=== PATIENT | male | born 1950 | race Caucasian/White ===

== ENCOUNTER 2019-11-01 11:13 | Emergency (ER) | payer BC, MEDICARE ==
--- OUTSIDE RECORDS SUMMARY | 2019-11-01 11:27 | XMS REPORT | Summary of Care ---
:1950 Author Organization [facility] Address [address] [address] Care Team Providers Name Role Phone Robin Brennan Primary Care Provider Reason for Visit Reason Comments Breathing Problem Pt. c/o increased Shortness of Breath. Reports Head Cold prior to Lynda. Encounter Details Date Type Department Care Team Description 10/30/2019 Office Visit [place] Sruthi, Acute on chronic systolic congestive heart failure (HCC) (Primary Dx); Cardiology MD Prakash Persistent atrial fibrillation; [address] Nonischemic cardiomyopathy (HCC); [place] [address] [place] [address] Aortic valve insufficiency, etiology of cardiac valve disease unspecified; [phone] Coronary artery disease involving yurok coronary artery of yurok heart without angina pectoris Allergies Active Allergy Reactions Severity Noted Date Comments Environmental Respiratory Reaction 07/30/2018 Lactose Intolerance GI Reaction Medium 12/26/2010 documented as of this encounter (statuses as of 10/30/2019) Medications Medication Sig Dispensed Refills Start Date End Date Status Cyanocobalamin (B-12 PO) Take 2,000 mg by 0 Active mouth. Misc Natural Products Take by mouth. 0 Active (GLUCOSAMINE CHONDROITIN ADV PO) ofloxacin (OCUFLOX) 0.3 Place 2 Drops in 1 Bottle 1 02/11/2019 Active % Ophthalmic left eye FOUR SolutionIndications: TIMES DAILY. Combined forms of Start one day age-related cataract of prior to surgery left eye and use the morning of surgery as directed. prednisoLONE acetate Place 1 Drop in 1 Bottle 1 02/11/2019 Active (PRED FORTE) 1 % left eye FOUR Ophthalmic TIMES DAILY. SuspensionIndications: Start using Combined forms of after surgery. age-related cataract of Use until the left eye bottle is gone. carvedilol (COREG) 12.5 Take 1 Tab by 180 Tab 3 05/26/2019 Active MG Oral Tab mouth TWICE DAILY. atorvastatin (LIPITOR) Take 1 Tab by 90 Tab 3 05/28/2019 Active 20 MG Oral Tab mouth DAILY. apixaban (ELIQUIS) 5 MG Take 1 Tab by 180 Tab 3 07/31/2019 Active Oral TabIndications: mouth TWICE Persistent atrial DAILY. fibrillation spironolactone Take 1 Tab by 90 Tab 3 08/04/2019 Active (ALDACTONE) 25 MG Oral mouth DAILY. TabIndications: Chronic systolic congestive heart failure (HCC) torsemide (DEMADEX) 20 Take 2 Tabs by 60 Tab 5 08/15/2019 Active MG Oral Tab mouth DAILY. documented as of this encounter (statuses as of 10/30/2019) Active Problems Problem Noted Date Alcoholism in remission 06/06/2018 Persistent atrial fibrillation 04/25/2018 Alcoholic cardiomyopathy 04/25/2018 Obstructive sleep apnea 05/22/2017 Overview: Severe by home sleep study April 2017 Primary osteoarthritis of both knees 04/02/2017 Essential hypertension, benign 09/27/2009 Umbilical hernia 09/11/2009 Incisional hernia 09/11/2009 Overview: Left upper quadrant History of alcohol abuse 09/30/2008 Overview: History of heavy use [id number] Reduced to 1-2 beers nightly and 5-6 weekends 2007. BMI 40.0-44.9, adult 09/18/2007 Overview: S/p gastroplasty bariatric surgery [facility] 1984. BMI 48 08/23, BMI 48 09/22, BMI 46.7 12/23 Major depression in remission 09/18/2007 Overview: Chronic. Osteoarthritis of Knee 09/18/2007 Primary osteoarthritis of shoulder 09/18/2007 Impotence of organic origin 09/18/2007 documented as of this encounter (statuses as of 10/30/2019) Resolved Problems Problem Noted Date Resolved Date Other chest pain 05/02/2018 05/03/2018 Primary osteoarthritis of right knee 07/10/2017 06/06/2018 Chronic pain of both knees 04/02/2017 06/06/2018 Shoulder pain, bilateral 01/20/2015 03/09/2017 Adhesive capsulitis of shoulder 09/30/2008 03/09/2017 Overview: LEFT documented as of this encounter (statuses as of 10/30/2019) Immunizations Name Administration Dates Next Due Influenza Vaccine Whole 07/12/2007, 08/07/2006 documented as of this encounter Social History Tobacco Use Types Packs/Day Years Used Date Former Smoker Cigarettes 1 2 Quit: 10/15/1971 Smokeless Tobacco: Never Used Alcohol Use Drinks/Week oz/Week Comments No Sex Assigned at Date Recorded Not on file Job Start Date Occupation Industry Not on file Not on file Not on file Travel History Travel Start Travel End No recent travel history available. documented as of this encounter Last Filed Vital Signs Vital Sign Reading Time Taken Comments Blood Pressure 134/76 10/30/2019 3:21 PM EST Pulse 125 10/30/2019 3:21 PM EST Temperature 37.9 10/30/2019 3:21 PM C (100.2 EST F) Respiratory Rate - - Oxygen Saturation 95% 10/30/2019 3:21 PM EST Inhaled Oxygen Concentration - - Weight 147.9 kg (326 lb) 10/30/2019 3:21 PM EST Height 180.3 cm (5' 11") 10/30/2019 3:21 PM EST Body Mass Index 45.47 10/30/2019 3:21 PM EST documented in this encounter Patient Instructions Patient InstructionsPrakash Negro MD - 10/30/2019 3:20 PM EST Bump up your echo appointment to have it done sooner than planned. INCREASE the torsemide to 2 tablets (40mg) once daily. INCREASE carvedilol to 12.5mg three times daily instead of just twice daily. Continue your other medications as-is. Get your bloodwork and chest xray checked today. Follow up with Alix Gonzales early next week. documented in this encounter Progress Notes Prakash Negro MD - 10/30/2019 3:20 PM EST [facility] Note Patient: Onesimo Cornejo Date of : 1950 Date of Service: 10/30/2019 REFERRING PRACTITIONER: Self-Referred PRIMARY CARE PROVIDER: Robin Brennan Chief Complaint: Chief Complaint Patient presents with Breathing Problem Pt. c/o increased Shortness of Breath. Reports Head Cold prior to . History of Present Illness: We had the pleasure of seeing Onesimo Cornejo today at the [facility] Office. He is a 69-y.o. male with morbid obesity, KATT on CPAP, HTN, hyperlipidemia, prior alcohol abuse, longstanding persistent atrial fibrillation, and systolic CHF due to NICM with later normalization of LVEF as of echo 09/2018. Cath in April 2018 showed nonobstructive CAD. Mr. Cornejo returns to cardiology clinic today on a semi-urgent basis for evaluation of SOB. He reports that over and New Year's he had 2-3 alcoholic drinks and also got a URI/sinusitis. He says that the sinusitis symptoms seemed to improve a week or two ago. No chest pains/pressure. Saysthat his breathing has been gradually worsening since the holidays. Has had ~4 pound weight gain byour scales. Says that he's been trying to restrict his sodium intake but did eat a lot more cookiesover the holidays. No significant cough but has been having chills. No significant palpitations. No clear orthopnea but sleeps with a wedge pillow chronically. Has noted some increased LE edema. Also notes that his toes have been hurting and blue. 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 History of alcohol abuse Umbilical hernia Incisional hernia Essential hypertension, benign Primary osteoarthritis of both knees Obstructive sleep apnea Persistent atrial fibrillation Alcoholic cardiomyopathy (HCC) Alcoholism in remission ([facility]) Past Medical History: Diagnosis Date Acute systolic congestive heart failure (HCC) 04/25/2018 Adhesive capsulitis of shoulder 09/30/2008 LEFT HISTORY OF ALCOHOL ABUSE 09/30/2008 Hypertension Obesity Persistent atrial fibrillation (HCC) 04/25/2018 Past Surgical History: Procedure Laterality Date CARDIOVERSION N/A 07/30/2018 Procedure: CARDIOVERSION; Surgeon: Prakash Negro MD; Location: [facility] ; Laterality: N/A;CARDIOVERSION CATHETERIZATION HEART RIGHT AND LEFT N/A 05/02/2018 Procedure: CATHETERIZATION HEART RIGHT AND LEFT; Surgeon: Ricardo Trevizo MD; Location: [facility] CCL COLONOSCOPY 1.9.2007 HIGH GASTRIC BYPASS 1984 AL REMV CATARACT EXTRACAP,INSERT LENS Left 03/17/2019 Procedure: PHACOEMULSIFICATION WITH INTRA OCULAR LENS; Surgeon: Loly Haro MD; Location: [facility] MAIN OR Allergies Allergen Reactions Lactose Intolerance GI Reaction Environmental Respiratory Reaction Current Outpatient Medications Medication Sig apixaban (ELIQUIS) 5 MG Oral Tab Take 1 Tab by mouth TWICE DAILY. atorvastatin (LIPITOR) 20 MG Oral Tab Take 1 Tab by mouth DAILY. carvedilol (COREG) 12.5 MG Oral Tab Take 1 Tab by mouth TWICE DAILY. Cyanocobalamin (B-12 PO) Take 2,000 mg by mouth. Misc Natural Products (GLUCOSAMINE CHONDROITIN ADV PO) Take by mouth. ofloxacin (OCUFLOX) 0.3 % Ophthalmic Solution Place 2 Drops in left eye FOUR TIMES DAILY. Start one day prior to surgery and use the morning of surgery as directed. prednisoLONE acetate (PRED FORTE) 1 % Ophthalmic Suspension Place 1 Drop in left eye FOUR TIMES DAILY. Start using after surgery. Use until the bottle is gone. spironolactone (ALDACTONE) 25 MG Oral Tab Take 1 Tab by mouth DAILY. torsemide (DEMADEX) 20 MG Oral Tab Take 2 Tabs by mouth DAILY. No current facility-administered medications for this visit. Family History Problem Relation Age of Onset Cancer Mother LUNG Heart Father CHF Parkinson's Father Heart Paternal Grandfather 36 Heart Son 36 Atrial fibrillation Social History Socioeconomic History Marital status: Spouse name: Not on file Number of children: Not on file Years of education: Not on file Highest education level: Not on file Occupational History Not on file Social Needs Financial resource strain: Not on file Food insecurity Worry: Not on file Inability: Not on file Transportation needs Medical: Not on file Non-medical: Not on file Tobacco Use Smoking status: Former Smoker Packs/day: 1.00 Years: 2.00 Pack years: 2.00 Types: Cigarettes Last attempt to quit: 10/15/1971 Years since quittin.0 Smokeless tobacco: Never Used Substance and Sexual Activity Alcohol use: No Drug use: No Sexual activity: Yes Partners: Female Lifestyle Physical activity Days per week: Not on file Minutes per session: Not on file Stress: Not on file Relationships Social connections Talks on phone: Not on file Gets together: Not on file Attends rastafarian service: Not on file Active member of club or organization: Not on file Attends meetings of clubs or organizations: Not on file Relationship status: Not on file Intimate partner violence Fear of current or ex partner: Not on file Emotionally abused: Not on file Physically abused: Not on file Forced sexual activity: Not on file Other Topics Concern Back Care Not Asked Bike Helmet Not Asked Blood Transfusions Not Asked Caffeine Concern Not Asked Exercise Yes Comment: treadmill at home 30 mins every morning Hobby Hazards Not Asked International Travel Not Asked Service Not Asked Occupational Exposure Yes Comment: 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 Seat Belt Not Asked Self-Exams Not Asked Sleep Concern Not Asked Special Diet Yes Comment: low fat and portion controlled diet Stress Concern Not Asked Weight Concern Yes Comment: goal weight is below 300lbs-weighed 280 lbs after gastric surgery 84. Social History Narrative Lives in [facility]. 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 Physical Exam: Vitals: 10/30/19 1521 BP: 134/76 BP Location: Left arm Patient Position: Sitting Pulse: (!) 125 Temp: 100.2 F (37.9 C) SpO2: 95% Weight: 326 lb (147.9 kg) Height: 5' 11" (1.803 m) Body mass index is 45.47 kg/m. General: Morbidly obese, alert 69-y.o. male in [facility] HEENT: anicteric, MMM, no E/E OP, conj pink Neck: JVP difficult to appreciate d/t body habitus but appears to be approx 9- 10 cm above RA; no carotid bruits. CV: Irreg irreg and tachy, normal s1/s2, very faint 1/6 diastolic murmur at LSB as before. Pulm: Fairly clear to auscultation, although he does have some mild resting tachypnea. Abd: soft, morbidly obese with large ventral hernia, NT, +BS. No appreciable pulsatile masses or bruits. Ext: Trace bilateral lower extremity edema, no redness or warmth, 1-2+ DP pulses bilaterally. Toes cool and purple, with slight skin breakdown at the tips of his toes. Neuro: no gross focal deficits Skin: no visible lesions Labs: Lab Results Component Value Date NA 137 05/26/2019 K 4.3 05/26/2019 CL 99 05/26/2019 CO2 30 05/26/2019 GLUCOSE 113 (H) 05/26/2019 BUN 28 (H) 05/26/2019 CREATININE 1.2 05/26/2019 CALCIUM 9.3 05/26/2019 TP 7.2 08/22/2018 ALBUMIN 3.8 08/22/2018 AST 25 08/22/2018 ALT 18 (L) 08/22/2018 ALK 79 08/22/2018 TBILI 1.0 08/22/2018 EGFR 60 05/26/2019 Lab Results Component Value Date NT PRO BNP 525 (H) 11/28/2018 Lab Results Component Value Date CHOL 158 03/27/2018 TRIG 66 03/27/2018 HDL 61 03/27/2018 LDL 84 03/27/2018 LDLHDLRATIO 1.4 03/27/2018 CHOLHDLRATIO 2.6 03/27/2018 Cardiac Studies: EKG Today (I personally reviewed): Afib with RVR in 120s. Nonspecific ST/T wave abnormalities. Limited TTE 09/18/18: FINAL IMPRESSION: Limited study with Definity to assess LVEF. Patient is in atrial fibrillation at the time of examination. Normal LV cavity size with moderate concentric LVH. Normal LV systolic function with no regional wall motion abnormalities; visually estimated LVEF 55-60% and calculated LVEF 58%. Left Heart Cath 05/02/18: SUMMARY: 1. Mild atherosclerotic coronary artery disease with no significant lesions. 2. Attempted right heart catheterization through the right brachial vein that allowed passage of a wire, but not any type of catheter due to some sort of constriction. Given the clinical history, further efforts at obtaining right heart catheterization were not felt to be necessary. TTE 04/24/18: FINAL IMPRESSION: Technically difficult study with limited acoustic windows and very limited endocardial visualization. IV contrast agent "Definity" was used for enhanced imaging of the LV endocardium. Patient was in atrial fibrillation at the time of examination. Mildly dilated LV with severe concentric LVH and severe left atrial enlargement. Moderately reduced LV systolic function with global hypokinesis; estimated LVEF 35-40%. Moderate right heart enlargement with reduced RV contractility. Aortic valve sclerosis with moderateregurgitation and no significant stenosis. Mild-moderate pulmonic regurgitation. No pericardial effusion. Mildly dilated aortic root and ascending aorta. Assessment & Plan: Onesimo Cornejo is a 69-y.o. male with morbid obesity, KATT on CPAP, HTN, hyperlipidemia, alcohol abuse, persistent atrial fibrillation, and systolic CHF due to NICM with later normalization of LVEF asof echo 09/2018. Cath in April 2018 showed nonobstructive CAD. ICD-9-CM ICD-10-CM 1. Acute on chronic systolic congestive heart failure (HCC) 428.23 I50.23 CBC WITH DIFFERENTIAL 428.0 COMPREHENSIVE METABOLIC PANEL NT PROBNP XR CHEST 2 VIEW PA AND LATERAL (STANDARD) 2. Persistent atrial fibrillation 427.31 I48.19 AMBULATORY 12 LEAD EKG (GLOBAL) 3. Nonischemic cardiomyopathy (HCC) 425.4 I42.8 4. Aortic valve insufficiency, etiology of cardiac valve disease unspecified 424.1 I35.1 5. Coronary artery disease involving yurok coronary artery of yurok heart without angina pectoris 414.01 I25.10 1. Acute on Chronic Systolic CHF due to NICM with NYHA Class III-IV symptoms: I suspect he has an infectious process (likely viral) that is driving his rapid Afib and putting him into worsening CHF today. Recommendations are as follows: Most recent LV function: 55-60% (assessed on 09/18/18 by contrast echo). Will bump up his planned echo from November to next week. Beta-debbie: Cont carvedilol. I'm increasing the dose to 12.5mg TID temporarily to try to slow him down. HERNAN-inhibitor/ARB or Entresto: Was previously on lisinopril but taken off at some point since his last visit. Will hold off on restarting today but he should probably continue the lisinopril. Aldosterone Antagonist: Cont spironolactone 25mg daily. Diuretics: Checking CMP and NT-proBNP today. Increasing torsemide to 40mg qAM. Other: I'm checking a CXR today and will have him f/u closely next week with my PA to ensure he's improving. 2. Longstanding Persistent Atrial Fibrillation: The etiology of atrial fibrillation in this patient is most likely related to morbid obesity, HTN, KATT , and EtOH abuse. The heart-rate is currently well controlled on the current medical regimen. This patient's [id number] score is 3. I recommend the following treatment strategy and medical regimen for this patient: Stroke prevention: Based on the patient's [id number] risk profile, I recommend continuing Eliquis. Rate control: Carvedilol increase as above. Rate control was previously good on 12.5mg BID. Rhythm control: Previously hasn't had symptoms from the Afib when his HR is controlled. As noted above, I think that an infectious process is driving his higher heart rates recently. No indication for urgent cardioversion at this time. Further workup/management issues: I again instructed the patient to completely abstain from EtOH and to use his CPAP regularly. I also counseled him to continue working on weight loss. 3. Nonobstructive Coronary Artery Disease: Currently asymptomatic from an ischemic standpoint. I recommend the following medical regimen: Antiplatelets: Not on ASA d/t Eliquis use. Statin: Cont low dose atorvastatin. 4. Aortic Regurgitation: Moderate by echo 04/2018. Rechecking another echo as above. Thank you for allowing me to participate in the care of Onesimo Cornejo. We will plan on f/u in ouroffice with my PA early next week to ensure he's improving. If you have any questions or concerns please feel free to call our office at . Prakash Negro MD, 10/30/2019, 16:03 This note was created using my previous note as a template; changes were made where appropriate, andall information in the current note is up to date to the best of my knowledge.Electronically signed by Prakash Negro MD at 2019 4:03 PM ESTdocumented in this encounter Plan of Treatment Date Type Specialty Care Team Description 10/30/2019 Ancillary Procedure Radiology Acute on chronic systolic congestive heart failure (HCC) 11/03/2019 Office Visit Cardiology Alix Gonzales PA [address] [address] 11/26/2019 Orders Only Cardiology 12/03/2019 Office Visit Cardiology Prakash Negro MD [facility] [place] [address] 05/04/2020 Ocular Visit Optometry Dale Dupree, OD [address] [place] [address] Name Type Priority Associated Diagnoses Date/Time XR CHEST 2 VIEW PA Imaging Routine Acute on chronic 10/30/2019 3:57 PM EST AND LATERAL systolic congestive (STANDARD) heart failure (HCC) Name Type Priority Associated Diagnoses Order Schedule AMBULATORY 12 LEAD EKG EKG Routine Persistent atrial Ordered: 10/30/2019 (GLOBAL) fibrillation CBC WITH DIFFERENTIAL Lab Routine Acute on chronic Expected: systolic congestive 10/30/2019 heart failure (HCC) (Approximate), Expires: 10/30/2020 COMPREHENSIVE METABOLIC Lab Routine Acute on chronic Expected: PANEL systolic congestive 10/30/2019 heart failure (HCC) (Approximate), Expires: 10/30/2020 NT PROBNP Lab Routine Acute on chronic Expected: systolic congestive 10/30/2019 heart failure (HCC) (Approximate), Expires: 10/30/2020 XR CHEST 2 VIEW PA AND Imaging Routine Acute on chronic Expected: LATERAL (STANDARD) systolic congestive 10/30/2019, heart failure (HCC) Expires: 10/29/2020 Health Maintenance Due Date Last Done Comments DTaP/Tdap/Td Vaccines (1 - 1962 Tdap) ZOSTER IMMUNIZATION SERIES 2001 (1 of 2) FALL RISK ASSESSMENT 01/19/2016 PNEUMOCOCCAL 65+YRS (1 of 2 01/19/2016 - PCV13) MEDICARE ANNUAL WELLNESS 03/09/2018 03/09/2017 VISIT DEPRESSION SCREENING 10/30/2019 10/30/2018 DIABETES SCREENING 05/26/2020 05/26/2019, 11/28/2018, 09/14/2018, Additional history exists LIPID DISORDER SCREENING 05/28/2020 05/28/2019, 05/26/2019, 03/27/2018, Additional history exists Colonoscopy 11/27/2021 11/27/2011, 11/27/2011, 10/23/2006 (Previously completed) AAA SCREENING/SURVEILLANCE Completed 12/13/2017, 11/24/2008, 10/13/2008 HEPATITIS A IMMUNIZATION Aged Out No longer eligible SERIES based on patient's age to complete this topic HPV IMMUNIZATION SERIES Aged Out No longer eligible based on patient's age to complete this topic MENINGOCOCCAL VACCINE IMM Aged Out No longer eligible based on patient's age to complete this topic documented as of this encounter Goals Goal Patient Goal Associated Recent Patient-Stated? Author Type Problems Progress Blood Pressure Blood Pressure Essential 134/76 No Raymond, < 140/90 hypertension, (10/30/2019 Robin Escalante, benign 3:21 PM EST) Note: Hypertension Care Plan Based on the patient's clinical history and according to JNC 8 guidelines target blood pressure goal is less than 140/90. Based on the patient's last blood pressure of BP: 150/76 mmHg the patient is at above goal. As your provider, it is important that I advise you regarding: your current medications and help you with any challenges you may face taking your medications as directed (ex. instructions, cost, side effects, and interactions). Important lifestyle changes: exercise, weight reduction, diet and dietary sodium reduction your clinical goals and how you can achieve success: weight reduction, exercise plan and diet improvements medication management: N/A diet only patient education/self-management tools provided: Yes To successfully manage my Hypertension I will: monitor my blood pressure daily, understanding that my goal is less than 140/ 90 per my healthcare provider's recommendation. I will schedule an appointment with my provider if consistent abnormal readings greater than 160/100. take medications every day as prescribed by my healthcare provider and if unable to take them I will discuss with my provider. monitor for symptoms of chest pain, chest tightness/pressure, irregular heartbeat, persistent dizziness, radiating arm pain, and neck or jaw pain. If any of these symptoms are noticed I will seek medical attention immediately by calling 911 exercise/walk 30 minutes 6 day(s) per week. If I experience chest pain, chest tightness, or shortness of breath, I will seek medical attention immediately. follow a diet rich in fruits, vegetables, and low-fat dairy products with reduced content of saturated & total fat. I will reduce my sodium intake daily. An example is the DASH diet. To obtain more information please refer to the DASH Eating Plan listed in Educational Resources. record my blood pressure results. ddmap.come is safe and secure way for you to do this in your medical record online. try to obtain an ideal body weight. My recent weight was Weight: 337 lb ( 152.862 kg). My weight loss goal for my next office visit is 300 lbs. limit alcohol consumption. For men two drinks per day and women one drink per day. if currently smoking, will discuss how to quit smoking with my healthcare provider and work towards quitting. Educational Resources: National Heart, Lung, & Blood [place] http://nhlbi.nih.gov/hbp/index.html The DASH Diet Eating Plan http://www.nhlbi.nih.gov/health/health-topics/ topics/dash/ Academy of Nutrition & DIetetics http://eatright.org National Smoking Cessation Site http://smokefree.gov Blood Pressure < Blood Pressure 134/76 (10/30/2019 Melody Walton FNP 150/90 3:21 PM EST) Note: This is an individualized treatment (blood pressure) goal for Onesimo Cornejo: Displayed above (on the left) is your goal for blood pressure control. Your most recent blood pressure is also shown above, on the right. You should try to achieve blood pressures that are lower than your goal listed above (on the left). Weight increase vs. 18 mo CHF 7.7 (10/30/2019 3:21 PM Robin Chery MD min (lbs) < 5 EST) Note: This is an individualized treatment (congestive heart failure, CHF) goal for Onesimo Cornejo: Displayed above (on the right) is how many pounds you are in excess of your lowest weight over the past 18 months. Note that lower numbers are better. Excessive weight gain often indicates fluid reten tion and worsening heart failure. You should contact your doctor immediately if the above number is too high (above your goal, the number on the left). Depression screen (PHQ-9) total score < 5 Depression Robin Chery MD Note: This is an individualized treatment (depression) goal for Onesimo Cornejo: Displayed above is your goal for a depression screening (PHQ-9) score that would indicate good control of your depression. Weight loss vs. 18 mo Lifestyle 0 (10/30/2019 3:21 PM No Melody Flanagan FNP max (lbs) >= 10 EST) Note: This is an individualized lifestyle goal for Onesimo Cornejo: Your body mass index (BMI) is more than 30. You should lose weight. A reasonable starting goal is to lose 10 pounds. Displayed above is how many pounds you have lost thus far towards your 10 pound weight loss goal. Consume a [id number] diet Lifestyle Robin Chery MD Note: This is an individualized lifestyle goal for Onesimo Cornejo: Please do not add additional salt to your food. Additional salt may lead to fluid retention and worsen your congestive heart failure. Keep a regular sleep schedule Lifestyle Robin Chery MD Note: This is an individualized lifestyle goal for Onesimo Cornejo: Please maintain a regular sleep schedule. This may help with some symptoms of depression. Take all prescribed medications as Self-management No Melody Flanagan FNP directed Note: This is an individualized self-management goal for Onesimo Cornejo: Please take all prescribed medications as directed. 1. Do not skip doses. If you cannot afford your medications, talk with your doctor. 2. Use a pill reminder system such as a pill box if needed. Your pharmacist can help you with this. 3. Contact your Pharmacy 5 days before your medication runs out. If you cannot take your medications for any reasons, talk with your doctor. 4. Please bring all of your medication bottles and inhalers (or a list of all your medications/inhalers) with you to every visit. Potential barriers to meeting all of your care plan goals will continue to be addressed on an ongoing basis. Check your weight daily Self-management No Robin Brennan MD Note: This is an individualized self-management goal for Onesimo Cornejo: Please check your weight daily. Refer to the accompanying CHF treatment goal and call your doctor immediately for further instructions on how to respond to unexpected weight gain. documented as of this encounter Implants Implanted Type Area Hull Inspector Device Shelf Model / Serial Identifier Expiration Date / Lot Iol, [id number] 21.0 Diopter - [id number] Left: Eye RONEY 10/14/2023 [id number] / Implanted: Qty: 1 on 03/17/2019 by Loly Haro MD at [facility] [id number] / documented as of this encounter Results Not on filedocumented in this encounter Visit Diagnoses Diagnosis Acute on chronic systolic congestive heart failure (HCC) Acute on chronic systolic heart failure Diagnosis Acute on chronic systolic congestive heart failure (HCC) Acute on chronic systolic heart failure Persistent atrial fibrillation Atrial fibrillation Nonischemic cardiomyopathy (HCC) Other primary cardiomyopathies Aortic valve insufficiency, etiology of cardiac valve disease unspecified 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
--- NOTE | 2019-11-01 12:07 | ED ---
Shortness of Breath - HPI Summary HPI Summary: 69 year old male presents with right leg pain and swelling for the past week. He states he did have a fever a couple days ago. He states that he has been having increasing shortness of breath. Noticed a rash a couple days ago. He states that he did gain some weight around [place] but has since lost it. He has never had this before. Denies any cough. No chest pain. No vomiting or nausea. No abdominal pain. Has a history of asthma or COPD. Is a smoker. No recent travel. Denies any history of blood clots. Does have a history of A. fib which is on eliquis. had a chest xray yesterday that was negative. - History of Current Complaint Chief Complaint: EDSoftTissueLowExtr Time Seen by Provider: 11/01/19 11:38 - Allergy/Home Medications Allergies/Adverse Reactions: Allergies Allergy/AdvReac Type Severity Reaction Status Date / Time No Known Allergies Allergy Verified 11/01/19 11:18 PMH/Surg Hx/FS Hx/Imm Hx Endocrine/Hematology History: Reports: Hx Anticoagulant Therapy Cardiovascular History: Reports: Hx Atrial Fibrillation Respiratory History: Denies: Hx Asthma, Hx Chronic Obstructive Pulmonary Disease (COPD) Infectious Disease History: No Infectious Disease History: Denies: Traveled Outside the [place] in Last 30 Days - Family History Known Family History: Positive: Non-Contributory - Social History Alcohol Use: None Alcohol Amount: STOPPED DRINKING 10/15/14 Substance Use Type: Reports: None Smoking Status (MU): Former Smoker Review of Systems Positive: Fever Negative: Chest Pain Positive: Shortness Of Breath. Negative: Cough Positive: Edema - right All Other Systems Reviewed And Are Negative: Yes Physical Exam Triage Information Reviewed: Yes Vital Signs On Initial Exam: Initial Vitals Temp Pulse Resp BP Pulse Ox 97.9 F 92 26 129/95 98 11/01/19 11:15 11/01/19 11:15 11/01/19 11:15 11/01/19 11:15 11/01/19 11:15 Vital Signs Reviewed: Yes Appearance: Positive: Well-Appearing Skin: Positive: Warm, Dry Head/Face: Positive: Normal Head/Face Inspection Eyes: Positive: Normal, EOMI, LIAM, Conjunctiva Clear ENT: Positive: Normal ENT inspection, Pharynx normal, TMs normal Respiratory/Lung Sounds: Positive: Clear to Auscultation, Breath Sounds Present Cardiovascular: Positive: Normal, RRR Abdomen Description: Positive: Nontender, Soft Bowel Sounds: Positive: Present Musculoskeletal: Positive: Edema Right - leg, Other - good pulses, erythema to right leg with warmth touch Neurological: Positive: Normal Psychiatric: Positive: Normal Procedures - Sedation Patient Received Moderate/Deep Sedation with Procedure: No Diagnostics - Vital Signs Vital Signs Temp Pulse Resp BP Pulse Ox 11/01/19 11:15 97.9 F 92 26 129/95 98 - Laboratory Result Diagrams: 11/01/19 12:00 11/01/19 12:00 Lab Statement: Any lab studies that have been ordered have been reviewed, and results considered in the medical decision making process. - Ultrasound No standard instances Ultrasound Interpretation Completed By: Radiologist Summary of Ultrasound Findings: IMPRESSION: NO EVIDENCE FOR DEEP VENOUS THROMBOSIS. Re-Evaluation - Re-Evaluation First Eval Re-Evaluation Time: 12:36 Comment: unable to get CTA due to kidney function, as already on eliquis, no hypoxia or tachycardia do not suspect PE Second Eval Comment: discussed ultrasound results Course/Dx - Course Course Of Treatment: 69 year old male presents with right leg pain and swelling for the past week. He states he did have a fever a couple days ago. He states that he has been having increasing shortness of breath. Noticed a rash a couple days ago. He states that he did gain some weight around [place] but has since lost it. He has never had this before. Denies any cough. No chest pain. No vomiting or nausea. No abdominal pain. Has a history of asthma or COPD. Is a smoker. No recent travel. Denies any history of blood clots. Does have a history of A. fib which is on eliquis. On exam heart rate irregular. Lungs CTA. Edema noted with erythema to right leg. EKG shows A. fib. wbc 14. crp elevated. troponin .01. bnp 115. sodium low at 127. u/s shows no dvt. chest xray shows no active disease. gave dose of lasix. patient states that torsemide was recently increased. will treat for cellulitis of right leg with keflex. told to elevate leg. will have follow up with primary. patient understand and agrees with plan. - Diagnoses Differential Diagnosis/HQI/PQRI: Positive: Bronchitis, CHF, Pulmonary Embolism Provider Diagnoses: Right leg swelling, Cellulitis, Shortness of breath Discharge ED - Sign-Out/Discharge Documenting (check all that apply): Patient Departure - Discharge Plan Condition: Good Disposition: HOME Prescriptions: Cephalexin CAP* [Keflex CAP*] 500 mg PO TID #29 cap Patient Education Materials: Cellulitis (ED) Referrals: Robin Brennan MD [Primary Care Provider] - Additional Instructions: Take Keflex three times a day for 10 days elevate leg take Tylenol as needed for pain every 6 hours Follow up with primary within 3 days Return to ED if develop fever, area of redness spreads, or any new or worsening symptoms - Billing Disposition and Condition Condition: GOOD Disposition: Home - Attestation Statements Provider Attestation: I was available for consultation for this patient. I did not evaluate the patient or participate in any medical decision making or disposition decisions unless I am specifically named in the chart as having consulted on the patient. If I have consulted on the patient, please see my own ED note on the patient encounter. Mina Salinas MD
[2019-11-01 12:09] LABS: ABS Basophils 0.1 10^3/ul (0-0.2); ABS Lymphocytes 1.1 10^3/ul (1.0-4.8); ABS Monocytes 1.1 10^3/ul (0-0.8); ABS Neutrophils 11.9 10^3/ul (1.5-7.7); Eosinophil % 0.2 %; Hematocrit 35 % (42-52); Hemoglobin 12.2 g/dL (14.0-18.0); Lymphocyte % 7.8 %; Mean Corpuscular HGB Conc 35 g/dL (31-36); Mean Corpuscular Hemoglobin 32 pg (27-31); Mean Corpuscular Volume 91 fL (80-94); Mean Platelet Volume 7.6 fL (7.4-10.4); Platelet Count 134 10^3/uL (150-450); Red Blood Count 3.88 10^6 /uL (4.18-5.48); Red Cell Distribution Width 14 % (10-15); White Blood Count 14.1 10^3/uL (3.5-10.8)
[2019-11-01 12:27] LABS: Albumin 3.5 g/dL (3.2-5.2); BUN/Creatinine Ratio 27.7 (8-20); C Reactive Protein 267.16 mg/L (<8.01); Calcium 8.8 mg/dL (8.6-10.3); EGFR African American 29.3 (>60); EGFR Non-African American 24.2 (>60); Globulin 3.5 g/dL (2-4); Total Bilirubin 1.5 mg/dL (0.2-1.0)
[2019-11-01 12:28] LABS: Activated Partial Thrombo Time 34.3 seconds (26.0-38.0); INR 1.9 (0.82-1.09); Troponin I 0.01 ng/mL (<0.03)
[2019-11-01 12:46] LABS: Influenza A Molecular NEGATIVE (Negative); Influenza B Molecular NEGATIVE (Negative)
[2019-11-01] MEDS ORDERED: ceFAZolin 1 GM ADVAN(*) 1 GM in NS 0.9% 50 ML* 50 ML IVPB ONE (13:34)
[2019-11-01] MEDS ORDERED: Furosemide IV* 10 MG/ML VIAL (40 MG) IV SLOW PU ONE (13:36)
[2019-11-01 14:45] VITALS: BP 96/52
== END 2019-11-01 14:43 | disposition home or self-care (01) ==
LOC: ED 11:13
DX: R60.0 Localized edema (principal); L03.115 Cellulitis of right lower limb; R06.02 Shortness of breath; I48.91 Unspecified atrial fibrillation; Z79.01 Long term (current) use of anticoagulants; J44.9 Chronic obstructive pulmonary disease, unspecified; Z87.891 Personal history of nicotine dependence
CPT/HCPCS: 36415; 71046; 80053; 83605; 83880; 84484; 85025; 85610; 85730; 86140; 87040; 93005; 96365; 96375; 99283; J0690; J1940